=== PATIENT | female | born 1960 | race Caucasian/White ===

== ENCOUNTER 2021-06-15 07:19 | Day surgery (SDC) | payer OTHER ==
[~2021-06-15] VITALS: Ht 162.6 cm; Wt 61.2 kg
[~2021-06-15 07:19] MED LIST: CLARITIN10 M2 PO; GARLIC1000 MG PO; LOSARTAN POTASS25 MG PO; ONE DAILY FOR1 EACH PO; PROBIOTIC1 EAC2 PO; TURMERIC500 M2 PO
--- NOTE | 2021-06-15 09:07 | NUR ---
06/15/21 0907 Yadi Gomez 0902-PATIENT ARRIVED TO PACU ON RA RR EVEN. PATIENT AROUSES TO VERBAL STIMULI DENIES PAIN OR NAUSEA. ABDOMEN SOFT LAYING LEFT LATERAL. IVF INFUSING. ENCOURAGED TO PASS GAS 097-PATIENT SLEEPING RR EVEN RA 93%
--- NOTE | 2021-06-16 06:36 | OR ---
[facility] [address], [place] [address] Signed DATE OF OPERATION: 06/15/2021 SURGEON: Josie House MD PREOPERATIVE DIAGNOSES: 1. Mother with colonic polyps in her late 60s or early 70s. 2. Diverticulosis. 3. Long redundant colon. POSTOPERATIVE DIAGNOSES: 1. Minimal sigmoid diverticulosis. 2. Long redundant colon. 3. 3 mm periappendiceal orifice polyp. 4. 4 mm polyp at 55 cm. PROCEDURE: Colonoscopy with hot biopsy. ESTIMATED BLOOD LOSS: None. INDICATIONS: Wendy is a 60-year-old female asked to see me for her followup colonoscopy. She reminded me that her mother had developed colonic polyps in her late 60s or early 70s. Her mom actually last year at age 92. Wendy underwent her colonoscopy in 2013 at the age of 53. She had minimal diverticulosis. She had a long redundant colon. She did well with Versed and fentanyl. She has delayed her followup colonoscopy because of the COVID pandemic. She has no lower GI complaints. In the office, I gave her a pamphlet on colonoscopy. She understands the nature of the test. There is risk including, but not limited to gas bloating, crampy abdominal pain, bleeding, perforation requiring surgery, and missed diagnosis. We also discussed the need for IV conscious sedation. She had expressed understanding and wished to proceed. PROCEDURE NOTE: Wendy was taken into our endoscopy suite and placed in the left lateral decubitus position. She was given a total of 9 mg of Versed and 175 mcg of fentanyl to cover the case. A digital rectal exam was performed and this was unremarkable. The adult colonoscope was then introduced and advanced under direct visualization of the camera. Again, she has a long redundant tortuous colon. Fortunately the scope goes fairly readily. It did take some abdominal compression and extra sedation in order to advance Electronically Signed By: JOSIE HOUSE MD 06/16/21 0636 PATIENT NAME: WENDY CARR OPERATIVE REPORT DATE OF : 64 REPORT #: [id number] PHYSICIAN: JOSIE HOUSE MD PCP: SHANI LAWRENCE PAC REPORT IS CONFIDENTIAL AND NOT TO BE RELEASED WITHOUT AUTHORIZATION [facility] [address], [place] [address] Signed the scope. Her prep was quite excellent. We could easily see the appendiceal orifice and the ileocecal valve. Right at the opening of the appendiceal orifice was a tiny 3 mm polypoid lesion. It was easily removed with a hot biopsy forceps. We also took a polyp about 55 cm with hot biopsy forceps. She has a few diverticula in the sigmoid colon. They are small in size, few in number, and scattered about. The rectum was unremarkable. Upon retroflexion of the scope, there was no additional pathology noted above the anal canal. After this, the gas was suctioned out and colonoscope removed. Wendy tolerated the procedure quite well. RECOMMENDATIONS: I will see Wendy back in my office in 7 to 14 days to review her results. I suspect she will stay on the five year plan due to her mother's history. Josie House MD ALB/MODL /[id number] cc: MICHAEL Mccray MD Copies: SHANI LAWRENCE ANDREW L MD ~ Electronically Signed By: JOSIE HOUSE MD 06/16/21 0636 PATIENT NAME: WENDY CARR OPERATIVE REPORT DATE OF : 64 REPORT #: [id number] PHYSICIAN: JOSIE HOUSE MD PCP: SHANI LAWRENCE REPORT IS CONFIDENTIAL AND NOT TO BE RELEASED WITHOUT AUTHORIZATION
== END 2021-06-15 09:52 | disposition home or self-care (01) ==
LOC: DS 07:19 → OPS 07:19 → DS 08:15 → OPS 08:15
PROVIDERS: ATTEND Colon & Rectal Surgery
PROC: 0DBK8ZX Excision of Ascending Colon, Via Natural or Artificial Opening Endoscopic, Diagnostic (ICD-10-PCS; principal; 2021-06-15 08:15)
DX: D12.6 Benign neoplasm of colon, unspecified (principal); I10 Essential (primary) hypertension; K57.30 Diverticulosis of large intestine without perforation or abscess without bleeding; Z20.822 Contact with and (suspected) exposure to COVID-19; Z88.0 Allergy status to penicillin; Z88.2 Allergy status to sulfonamides; Z88.8 Allergy status to other drugs, medicaments and biological substances; Z91.040 Latex allergy status; Z83.71 Family history of colonic polyps
CPT/HCPCS: 99153; G0500; J2250; J3010; J7121